=== PATIENT | female | born 1995 | race Caucasian/White ===

== ENCOUNTER 2017-01-04 10:49 | Emergency (ER) | payer SELFPAY ==
[~2017-01-04] VITALS: Ht 162.6 cm; Wt 72.2 kg
[2017-01-04] MEDS ORDERED: MORPHINE SULFATE 4 MG/ML, 1ML IVPush PRN (12:00)
[2017-01-04] MEDS ORDERED: SODIUM CHLORIDE 0.9% 1,000ML IVBOLUS ONE (12:00)
[2017-01-04] MEDS ORDERED: SODIUM CHLORIDE FLUSH 10ML SYR IVF ONE (12:00)
[2017-01-04] MEDS ORDERED: ONDANSETRON 2MG/ML, 2ML IVPush ONE (12:00)
[2017-01-04 12:17] LABS: BLOOD UREA NITROGEN 8 mg/dL (7-18)
[2017-01-04 13:07] VITALS: BP 115/72
== END 2017-01-04 13:35 | disposition home or self-care (01) ==
LOC: ED 13:31
DX: N30.90 Cystitis, unspecified without hematuria (principal); N83.202 Unspecified ovarian cyst, left side; R10.2 Pelvic and perineal pain
CPT/HCPCS: 36415; 76830; 80048; 81001; 82040; 84703; 85025; 87077; 87086; 87106; 87186

== ENCOUNTER 2019-08-06 10:54 | Emergency (ER) | payer BC, OTHER ==
[~2019-08-06] VITALS: Ht 162.6 cm; Wt 84.7 kg
[2019-08-06 11:00] VITALS: BP 128/83
[2019-08-06 11:47] LABS: BASOPHILS # (AUTO) 0.04 x10^3/uL (0-0.1); BASOPHILS % (AUTO) 1 % (0-1); EOSINOPHILS # (AUTO) 0.03 x10^3/uL (0-0.4); EOSINOPHILS % (AUTO) 1 % (1-7); LYMPHOCYTES # (AUTO) 1.41 x10^3/uL (1-3.4); LYMPHOCYTES % (AUTO) 22 % (22-44); MD NO; MEAN CORPUSCULAR HEMOGLOBIN 33.3 pg (27.0-34.8); MEAN CORPUSCULAR HGB CONC 34.3 g/dL (32.4-35.8); MEAN CORPUSCULAR VOLUME 97.3 fL (80-100); MEAN PLATELET VOLUME 7.9 fL (7.4-10.4); MONOCYTES # (AUTO) 0.43 x10^3/uL (0.2-0.8); MONOCYTES % (AUTO) 7 % (2-9); NEUTROPHILS # (AUTO) 4.64 x10^3/uL (1.8-6.8); NEUTROPHILS % (AUTO) 71 % (42-75); PLATELET COUNT 261 x10^3/uL (130-400); RED BLOOD COUNT 4.42 x10^6/uL (3.82-5.3); RED CELL DISTRIBUTION WIDTH 11.9 % (9.6-15.2)
[2019-08-06 11:53] LABS: ALBUMIN 3.9 g/dL (3.4-5.0); ANION GAP 5 mmol/L (5-15); CALCIUM 8.9 mg/dL (8.5-10.1); CHLORIDE 109 mmol/L (98-107); CREATININE 0.94 mg/dL (0.55-1.02)
[2019-08-06 13:51] LABS: MICROSCOPIC AUTO
[2019-08-06 13:53] LABS: CULTURE INDICATED? YES
== END 2019-08-06 14:52 | disposition left against medical advice (07) ==
LOC: ED 12:53
DX: N30.90 Cystitis, unspecified without hematuria (principal); N83.202 Unspecified ovarian cyst, left side
CPT/HCPCS: 36415; 76830; 80048; 81001; 82040; 84703; 85025; 87086; 99284